=== PATIENT | female | born 1955 | race Caucasian/White ===

== ENCOUNTER 2017-02-15 16:43 | Emergency (ER) | payer OTHER ==
[~2017-02-15] VITALS: Ht 152.4 cm; Wt 63.0 kg
[2017-02-15] MEDS ORDERED: ONDANSETRON HCL 4MG/2ML VIAL IV STA (19:32)
[2017-02-15] MEDS ORDERED: SODIUM CHLORIDE 0.9% 1,000 ML IV ONE (19:32)
[2017-02-15 20:02] LABS: BASOPHILS % 0.5 % (0.0-2.0); HEMOGLOBIN. 14.9 g/dL (12.0-16.0); MEAN CORPUSCULAR HEMOGLOBIN 31.8 pg (28.0-32.0); MEAN PLATELET VOLUME 8.7 fl (7.4-10.4); MONOCYTES % 3.8 % (2.0-8.0); NEUTROPHILS % 80.7 % (40.0-76.0); PLATELET 191 x1000/uL (130-400); RED BLOOD CELL COUNT 4.67 mill/uL (4.2-5.4); RED CELL DISTRIBUTION WIDTH 13.7 % (11.6-14.6)
[2017-02-15 20:09] LABS: CHLORIDE 100 mEq/L (98-107)
[2017-02-15 20:14] LABS: CARBON DIOXIDE 29 mEq/L (21-32)
[2017-02-15 21:04] VITALS: BP 117/76
== END 2017-02-15 21:05 | disposition home or self-care (01) ==
LOC: ER 17:14
DX: F12.929 Cannabis use, unspecified with intoxication, unspecified (principal); E78.00 Pure hypercholesterolemia, unspecified
CPT/HCPCS: 36415; 80048; 85025; 93005; 96361; 96374; 99285; J2405; J7030; J7040